=== PATIENT | male | born 1980 | race African-American/Black ===

== ENCOUNTER 2022-08-29 12:21 | Emergency (ER) | payer BC ==
[~2022-08-29] VITALS: Ht 177.8 cm; Wt 83.9 kg
[2022-08-29 12:28] VITALS: BP_SYST 150
[2022-08-29] MEDS ORDERED: predniSONE 20 MG TABLET PO ONE (12:45)
[2022-08-29] MEDS ORDERED: EPINEPHRINE HCL/PF 1 MG/ML AMP IM ONE (12:45)
[2022-08-29] MEDS ORDERED: ERYT-122 PO (13:43)
[2022-08-29] MEDS ORDERED: PRED20TA PO (13:43)
[2022-08-29] MEDS ORDERED: EPIN0.3P3 IM (13:43)
[2022-08-29 14:02] VITALS: BP_SYST 149
== END 2022-08-29 14:05 | disposition home or self-care (01) ==
LOC: SED 12:21
DX: R22.0 Localized swelling, mass and lump, head (principal); T36.0X5A Adverse effect of penicillins, initial encounter; Z79.899 Other long term (current) drug therapy; Y92.89 Other specified places as the place of occurrence of the external cause
CPT/HCPCS: 99283; 96372; J7512; J0171

== ENCOUNTER 2023-01-15 14:17 | Emergency (ER) | payer BC ==
[~2023-01-15] VITALS: Ht 177.8 cm; Wt 88.5 kg
[~2023-01-15 14:17] MED LIST: EPIN0.3P3 IM; ERYT-122 PO; PRED20TA PO
[2023-01-15 14:30] VITALS: BP_SYST 163; PULSE 118; RESP 18; TEMP 98.3; O2SAT 98
[2023-01-15] MEDS ORDERED: cloNIDine HCL 0.1 MG TABLET PO ONE (15:15)
[2023-01-15 17:22] VITALS: BP_SYST 146; PULSE 92; RESP 20; TEMP 98.3; O2SAT 97
== END 2023-01-15 17:20 | disposition home or self-care (01) ==
LOC: SED 14:17
DX: I10 Essential (primary) hypertension (principal); Z79.899 Other long term (current) drug therapy
CPT/HCPCS: 99285

== ENCOUNTER 2023-03-08 12:24 | Emergency (ER) | payer BC ==
[~2023-03-08] VITALS: Ht 182.9 cm; Wt 86.2 kg
[2023-03-08 12:46] VITALS: BP_SYST 150; PULSE 79; RESP 18; TEMP 98.5; O2SAT 97
[2023-03-08] MEDS ORDERED: DIPHENHYDRAMINE INJ 50 MG/ML VIAL IVP ONE (13:00)
[2023-03-08] MEDS ORDERED: FAMOTIDINE PF 20 MG/2 ML VIAL IVP ONE (13:00)
[2023-03-08] MEDS ORDERED: RACEPINEPHRINE HCL 0.5 ML VIAL.NEB INH ONE (13:00)
[2023-03-08] MEDS ORDERED: methylPREDNISolone SOD SUCC/PF 62.5 MG/ML VIAL IVP ONE (13:00)
[2023-03-08 13:36] LABS: BASOPHILS % (AUTO) 0.4 % (0.0-2.0); EOSINOPHILS # (AUTO) 0.1 K/uL (0.0-0.4); EOSINOPHILS % (AUTO) 2.1 % (0.0-4.0); HEMATOCRIT 48.4 % (36-54); HEMOGLOBIN 15.5 g/dL (14.0-18.0); LYMPHOCYTES # (AUTO) 0.6 K/uL (1.0-5.5); LYMPHOCYTES % (AUTO) 9.7 % (20.5-51.5); MEAN CORPUSCULAR HEMOGLOBIN 26 pg (27-31); MEAN CORPUSCULAR HGB CONC 32 % (32-36); MEAN CORPUSCULAR VOLUME 83 fL (79.0-98.0); MONOCYTES # (AUTO) 0.4 K/uL (0.0-1.0); MONOCYTES % (AUTO) 6.7 % (1.7-9.3); NEUTROPHILS # (AUTO) 5.1 K/uL (1.8-7.7); NEUTROPHILS % (AUTO) 81.1 % (40.0-70.0); PLATELET COUNT (AUTO) 262 K/uL (130-430); RED BLOOD CELL COUNT(AUTO) 5.86 MIL/uL (4.2-6.2); WHITE BLOOD COUNT (AUTO) 6.3 K/uL (4.8-10.8)
[2023-03-08 13:52] LABS: CALCIUM 8.7 mg/dL (8.4-11.0); CREATININE 0.97 mg/dL (0.55-1.30); POTASSIUM 3.2 mmol/L (3.5-5.1)
[2023-03-08] MEDS ORDERED: METH-776 PO (14:06)
[2023-03-08] MEDS ORDERED: DIPH25CA83 PO (14:06)
[2023-03-08] MEDS ORDERED: FAMO40TA71 PO (14:06)
[2023-03-08 14:32] VITALS: BP_SYST 145; PULSE 89; RESP 16; TEMP 98.9
[2023-03-08 14:46] VITALS: O2SAT 98
== END 2023-03-08 14:32 | disposition home or self-care (01) ==
LOC: SED 12:24
DX: K12.2 Cellulitis and abscess of mouth (principal); I10 Essential (primary) hypertension; Z79.899 Other long term (current) drug therapy
CPT/HCPCS: 99284; 96374; 96375; 80048; 85025; 36415; J1200; J3490; J2930